=== PATIENT | male | born 1990 ===

== ENCOUNTER 2022-10-05 13:54 | Outpatient (REF) | payer OTHER, SELFPAY | END 2022-10-05 13:55 | disposition home or self-care (01) | LOC: HO.BBR 13:54 | PROVIDERS: Visit Provider Internal Medicine | DX: Z13.89 Encounter for screening for other disorder (principal) ==

== ENCOUNTER 2022-11-03 13:46 | Outpatient (REF) | payer OTHER, SELFPAY | END 2022-11-03 13:47 | disposition home or self-care (01) | LOC: HO.BBR 13:46 | PROVIDERS: Visit Provider Internal Medicine | DX: Z13.89 Encounter for screening for other disorder (principal) ==

== ENCOUNTER 2023-01-06 13:05 | Outpatient (REF) | payer OTHER, SELFPAY | END 2023-01-06 13:06 | disposition home or self-care (01) | LOC: HO.BBR 13:05 | PROVIDERS: Visit Provider Internal Medicine | DX: Z13.89 Encounter for screening for other disorder (principal) ==

== ENCOUNTER 2023-02-01 12:59 | Outpatient (REF) | payer OTHER, SELFPAY | END 2023-02-01 13:00 | disposition home or self-care (01) | LOC: HO.BBR 12:59 | PROVIDERS: Visit Provider Internal Medicine | DX: Z13.89 Encounter for screening for other disorder (principal) ==

== ENCOUNTER 2023-03-02 14:03 | Outpatient (REF) | payer OTHER, SELFPAY | END 2023-03-02 14:04 | disposition home or self-care (01) | LOC: HO.BBR 14:03 | PROVIDERS: Visit Provider Internal Medicine | DX: Z13.89 Encounter for screening for other disorder (principal) ==

== ENCOUNTER 2023-03-30 14:08 | Outpatient (REF) | payer OTHER, SELFPAY | END 2023-03-30 14:09 | disposition home or self-care (01) | LOC: HO.BBR 14:08 | PROVIDERS: Visit Provider Internal Medicine | DX: Z13.89 Encounter for screening for other disorder (principal) ==

== ENCOUNTER 2023-05-11 14:09 | Outpatient (REF) | payer OTHER, SELFPAY | END 2023-05-11 14:10 | disposition home or self-care (01) | LOC: HO.BBR 14:09 | PROVIDERS: Visit Provider Internal Medicine | DX: Z13.89 Encounter for screening for other disorder (principal) ==

== ENCOUNTER 2023-06-14 14:04 | Outpatient (REF) | payer OTHER, SELFPAY | END 2023-06-14 14:05 | disposition home or self-care (01) | LOC: HO.BBR 14:04 | PROVIDERS: Visit Provider Internal Medicine | DX: Z13.89 Encounter for screening for other disorder (principal) ==

== ENCOUNTER 2024-07-18 14:27 | Outpatient (REF) | payer OTHER, SELFPAY | END 2024-07-18 14:28 | disposition home or self-care (01) | LOC: HO.BBR 14:27 | PROVIDERS: PCP Internal Medicine; Visit Provider Internal Medicine | DX: Z13.89 Encounter for screening for other disorder (principal) ==

== ENCOUNTER 2024-08-01 14:12 | Outpatient (REF) | payer OTHER, SELFPAY | END 2024-08-01 14:13 | disposition home or self-care (01) | LOC: HO.BBR 14:12 | PROVIDERS: PCP Internal Medicine; Visit Provider Internal Medicine | DX: Z13.89 Encounter for screening for other disorder (principal) ==

== ENCOUNTER 2024-08-22 14:14 | Outpatient (REF) | payer OTHER, SELFPAY | END 2024-08-22 14:15 | disposition home or self-care (01) | LOC: HO.BBR 14:14 | PROVIDERS: PCP Internal Medicine; Visit Provider Internal Medicine | DX: Z13.89 Encounter for screening for other disorder (principal) ==

== ENCOUNTER 2024-09-05 14:11 | Outpatient (REF) | payer OTHER, SELFPAY | END 2024-09-05 14:12 | disposition home or self-care (01) | LOC: HO.BBR 14:11 | PROVIDERS: Visit Provider Internal Medicine | DX: Z13.89 Encounter for screening for other disorder (principal) ==

== ENCOUNTER 2025-02-19 15:09 | Outpatient (REF) | payer OTHER, SELFPAY ==
--- OUTSIDE RECORDS SUMMARY | 2025-02-19 17:58 | XMS_ITS | Clinical Summary ---
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
== END 2025-02-19 15:10 | disposition home or self-care (01) ==
LOC: HO.BBR 15:09
PROVIDERS: PCP Internal Medicine; Visit Provider Internal Medicine
DX: Z13.89 Encounter for screening for other disorder (principal)

== ENCOUNTER 2025-03-30 14:09 | Outpatient (REF) | payer OTHER, SELFPAY | END 2025-03-30 14:10 | disposition home or self-care (01) | LOC: HO.BBR 14:09 | PROVIDERS: Visit Provider Internal Medicine | DX: Z13.89 Encounter for screening for other disorder (principal) ==

== ENCOUNTER 2025-04-06 14:09 | Outpatient (REF) | payer OTHER, SELFPAY ==
--- OUTSIDE RECORDS SUMMARY | 2025-04-06 14:10 | XMS_ITS | Clinical Summary ---
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
== END 2025-04-06 14:10 | disposition home or self-care (01) ==
LOC: HO.BBR 14:09
PROVIDERS: PCP Internal Medicine; Visit Provider Internal Medicine
DX: Z13.89 Encounter for screening for other disorder (principal)

== ENCOUNTER 2025-04-13 13:05 | Outpatient (REF) | payer OTHER, SELFPAY ==
--- OUTSIDE RECORDS SUMMARY | 2025-04-13 13:14 | XMS_ITS | Clinical Summary ---
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
[2025-04-13 13:47] LABS: MANUAL DIFF FLAG NO
[2025-04-13 13:49] LABS: Basophils Percent Auto 0.8 % (0-2); Eosinophils Absolute Auto 0.2 X10*3/uL (0.0-0.4); Eosinophils Percent Auto 4.4 % (0-4); Hematocrit 35.4 % (42.0-52.0); Hemoglobin 12.9 g/dl (14.0-18.0); Lymphocytes Absolute Auto 1.4 X10*3/uL (1.2-4.9); Lymphocytes Percent Auto 39.5 % (20-40); Mean Corpuscular HGB Conc 36.4 g/dl (31.0-36.0); Mean Corpuscular Hemoglobin 33.9 pg (27.0-33.0); Mean Corpuscular Volume 92.9 fL (80.0-98.0); Monocytes Absolute Auto 0.3 X10*3/uL (0.1-1.2); Monocytes Percent Auto 8.8 % (2-11); Neutrophils Absolute Auto 1.7 x10*3/uL (2.0-8.3); Neutrophils Percent Auto 46.5 % (45-73); Platelet Count 233 X10*3/uL (160-400); Red Blood Count 3.81 X10*6/uL (4.60-5.80); Red Cell Distribution Width 12.7 % (11.0-16.0); White Blood Count 3.6 X10*3/uL (4.8-10.8)
[2025-04-13 14:12] LABS: Estimated Average Glucose 88 mg/dL; Hemoglobin A1c % 4.7 % (<6.0); Total Hemoglobin (HGBA1C) 3392.4707 umol/L
[2025-04-13 14:41] LABS: Alanine Aminotransferase 23 U/L (0-40); Albumin Level 4.3 g/dL (3.5-5.0); Alkaline Phosphatase 79 U/L (39-117); Aspartate Amino Transferase 24 U/L (5-37); Bilirubin Direct 0.2 mg/dL (0.0-0.5); Bilirubin Total 0.6 mg/dL (0.0-1.0); Iron 127 mcg/dL (45-160); Percent Iron Saturation 54 % (15-50); Total Iron Binding Capacity 235 mcg/dL (228-428); Total Protein 6.7 g/dL (6.5-8.0); Unsaturated Iron Binding 108 ug/dL
[2025-04-13 15:02] LABS: Ferritin 168 ng/mL (20-250); Thyroid Stimulating Hormone 1.16 uIU/mL (0.32-4.0)
[2025-04-19 18:49] LABS: Testosterone, Free 58.6 pg/mL (35.0-155.0); Testosterone, Total 337 ng/dL (250-1100)
== END 2025-04-13 13:06 | disposition home or self-care (01) ==
LOC: HO.BBR 13:05
PROVIDERS: PCP Internal Medicine; Visit Provider Internal Medicine
DX: E83.119 Hemochromatosis, unspecified (principal)
CPT/HCPCS: 36415; 80076; 82728; 83036; 83540; 84402; 84403; 84443; 85025